=== PATIENT | male | born 1985 | race Caucasian/White ===

== ENCOUNTER 2018-10-23 00:08 | Emergency (ER) | payer SELFPAY ==
[2018-10-23 00:43] LABS: BASOPHILS % (AUTO) 1 % (0-3); EOSINOPHILS % (AUTO) 3 % (0-9); HEMATOCRIT 48 % (39-53); HEMOGLOBIN 16.8 gm/dl (13.5-17.7); LYMPHOCYTES % (AUTO) 27.9 % (10-50); MEAN CORPUSCULAR HEMOGLOBIN 31.4 pg (27.0-32.0); MEAN CORPUSCULAR VOLUME 90 fL (80-100); NEUTROPHILS % (AUTO) 56.5 % (37-80)
[2018-10-23 00:54] LABS: APPEARANCE,URINE Slightly Cloudy; BILIRUBIN,URINE 1+ (NEGATIVE); COLOR,URINE Dark yellow; GLUCOSE, URINE (UA) NEGATIVE (NEGATIVE); KETONES,URINE TRACE (NEGATIVE); LEUKOCYTE ESTERASE ,URINE NEGATIVE (NEGATIVE); NITRATE,URINE NEGATIVE (NEGATIVE); OCCULT BLOOD,URINE NEGATIVE (NEG-TRACE); PH,URINE 5.5; UROBILINOGEN,URINE 0.2 (0.2-1.0 EU)
[2018-10-23 01:06] LABS: ALBUMIN 4.2 gm/dl (3.4-5.0); BILIRUBIN,TOTAL 0.6 mg/dl (0.2-1.0); CALCIUM 9.1 mg/dl (8.5-10.1); CARBON DIOXIDE 27.9 mEq/L (21-32); CREATININE 1.16 mg/dl (0.80-1.30); POTASSIUM 4.3 mMol/L (3.5-5.1); THYROID STIMULATING HORMONE 0.987 uIU/ml (0.358-3.740); TOTAL PROTEIN 7.8 gm/dl (6.4-8.2)
[2018-10-23 01:07] LABS: ALCOHOL 0.006 gm/dl (0.000-0.08)
[2018-10-23 01:12] LABS: AMPHETAMINES POSITIVE (NEGATIVE); BACTERIA NEGATIVE (< 1+); BARBITUATES NEGATIVE (NEGATIVE); BENZODIAZEPINES NEGATIVE (NEGATIVE); CANNABINOL(THC) NEGATIVE (NEGATIVE); COCAINE(COC) NEGATIVE (NEGATIVE); CRYSTALS 1+ AMORPH URATES (0-3 AVE/HPF); METHADONE NEGATIVE (NEGATIVE); METHAMPHETAMINES NEGATIVE (NEGATIVE); OPIATES(OPI) NEGATIVE (NEGATIVE); OXYCODONE(OXY) NEGATIVE (NEGATIVE); PROPOXYPHENE(PPX) NEGATIVE (NEGATIVE); RBC,URINE NEG (0-3AV/HPF); TRICYCLIC ANTIDEPRESSANTS NEGATIVE (NEGATIVE); WBC,URINE 0-1 (0-5AV/HPF)
[2018-10-23 01:14] LABS: ICTOTEST,URINE NEGATIVE (NEGATIVE)
[2018-10-23 01:45] VITALS: BP 116/64; PULSE 108; RESP 20; TEMP 97; O2SAT 97
== END 2018-10-23 01:28 | DRG 880 ==
LOC: ED 00:08
DX: R45.851 Suicidal ideations (principal); Z79.899 Other long term (current) drug therapy; F41.9 Anxiety disorder, unspecified; R46.2 Strange and inexplicable behavior
CPT/HCPCS: 36415; 80053; 80305; 80307; 81001; 84443; 85025; 99283